=== PATIENT | female | born 1985 | race Caucasian/White ===

== ENCOUNTER → 2023-03-27 09:37 | Outpatient (BNVA) | payer OTHER, SELFPAY | PROVIDERS: Visit Provider Physician Assistant | DX: S63.652A Sprain of metacarpophalangeal joint of right middle finger, initial encounter (principal); X50.1XXA Overexertion from prolonged static or awkward postures, initial encounter | CPT/HCPCS: 99204 ==

== ENCOUNTER → 2023-04-02 11:41 | Outpatient (BNVA) | payer OTHER, SELFPAY | PROVIDERS: PCP Internal Medicine; Visit Provider Physician Assistant | DX: S63.652A Sprain of metacarpophalangeal joint of right middle finger, initial encounter (principal); X50.1XXA Overexertion from prolonged static or awkward postures, initial encounter | CPT/HCPCS: 99213 ==

== ENCOUNTER → 2023-04-17 11:48 | Outpatient (BNVA) | payer OTHER, SELFPAY | PROVIDERS: PCP Internal Medicine; Visit Provider Physician Assistant | DX: S63.652D Sprain of metacarpophalangeal joint of right middle finger, subsequent encounter (principal); X50.1XXD Overexertion from prolonged static or awkward postures, subsequent encounter | CPT/HCPCS: 99213 ==

== ENCOUNTER → 2023-05-03 14:08 | Outpatient (BNVA) | payer OTHER, SELFPAY | PROVIDERS: PCP Internal Medicine; Visit Provider Physician Assistant | DX: S63.652D Sprain of metacarpophalangeal joint of right middle finger, subsequent encounter (principal); X50.1XXD Overexertion from prolonged static or awkward postures, subsequent encounter | CPT/HCPCS: 99213 ==

== ENCOUNTER 2023-05-17 14:30 | Outpatient (RCR) | payer OTHER, BC, SELFPAY ==
--- NOTE | 2023-03-28 10:59 | MHC.OT.OEV ---
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 felt a pop on top of her right hand. 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 Now referred to OT for further assessment and management of right ring finger extensor strain. 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 [employer] Living Situation, Family and/or Social Support: Lives with 6 and 19 yo children Current Level of Function and Occupation Self Care, Employment, Leisure: Out of work, avoiding activities (cooking) that require use of right hand Sleep: No issues Driving: No issues, just gaurding Vision: Balance: Pain Assessment Pain Score: 4 Pain Scale Used: Numeric (0 - 10) Pain Location and Description: No pain at rest, feels tightness in dorsal forearm Aggravating Factors: General use/movement Alleviating Factors: Intermittent icing Skin and Soft Tissue Assessment Skin and Soft Tissue: Comments: Mild edema in right dorsal hand - intrametacarpal space Nerve assessment Ulnar Nerve: Median Nerve: Radial Nerve: Comments: WFL Sensory Assessment Temperature: Light Touch: Proprioception: Vibration: Comments: WFL Edema Assessment Upper Extremity: Lower Extremity: Comments: MCP circumference R 19.5 cm L 19.0 cm Dexterity Assessment Dexterity: Comments: Generally avoiding FMC tasks due to strain Special Tests Comments: AROM(PROM) Strength Cervical Cervical Flexion: Cervical Extension: Cervical Lateral Flexion: Cervical Rotation: Comments: Shoulder Flexion: Extension: Abduction: Internal Rotation: External Rotation: Comments: Flexion: Extension: Abduction: Internal Rotation: External Rotation: Comments: Elbow Flexion: Extension: Pronation: Supination: Comments: Flexion: Extension: Pronation: Supination: Comments: Wrist Flexion: R 74 L 80 Extension: R 68 L 70 Ulnar Deviation: Radial Deviation: Comments: Flexion: Extension: Ulnar Deviation: Radial Deviation: Comments: Thumb Thumb CMC Flexion: Thumb MCP Flexion: Thumb IP Flexion: Radial Abduction: Palmar Abduction: [place] ([place] 0-10): Comments: Digits Index MCP: PIP: DIP: Long MCP: PIP: DIP: Ring MCP: PIP: DIP: Small MCP: PIP: DIP: Comments: Grossly WFL, tested in protective position w/ MCP flex in lumbrical plus and IP flex in hook Gross Grasp: R NT L 55 Lateral Pinch: Two-Point Pinch: Three-Jaw Tomer: Comments: Patient Education Primary Language: Maltese 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 Patient demonstrates Patient verbalizes Barriers to Learning: None Readiness for Learning: Accepting Who was educated? 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 felt a pop on top of her right hand. 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 Now referred to OT for further assessment and management of right ring finger extensor strain. On assessment, pt w/ mid edema in dorsal hand between metacarpals, she is guarded w/ flex and has visible slipping of the extsnor tendon ulnarly over MCP head w/ composite flex, but otherwise good digit range w/ protective positioning. Injury consistent w/ extesnor strain/sagittal band injury. We have trialed movement w/ D3 in MCP relative extension position and she is able to flex hand without tendon slipping. She is good candidate for D3 relative motion ext block orthosis and has also been fit MCP flex block orthosis, instructed to wear whichever feels more comfortable at this time. I anticipate she will do well w/ brief course of OT for education but will primarily need time to allow injury to heal in protected position. STG Duration: 2 weeks Short Term Goals: Ind w/ orthosis wear Pt to report ease w/ light manual tasks without extensor tendon subluxation Ind w/ use of ice for edema and pain management as needed LTG Duration: Senior Living Goals: Frequency and Duration: The patient will be seen 1x/wk for 2 weeks Treatment Plan: Therapeutic Exercise Therapeutic Activity Home Exercise Program Splinting Patient Education Edema Control ADL Training Cold Packs Soft Tissue Mobilization Kinesiotaping Electronically Signed By: KG Hallman/Dinh FAUSTINT Reviewed/agree with student documentation: Therapist: Please sign and return to therapist, Thank you for your referral.
== END 2023-06-28 13:49 | disposition home or self-care (01) ==
LOC: HO.OT 14:30
PROVIDERS: PCP Internal Medicine; Visit Provider Physician Assistant
DX: S69.81XD Other specified injuries of right wrist, hand and finger(s), subsequent encounter (principal)
CPT/HCPCS: 29130; 97035; 97110; 97165; 97760

== ENCOUNTER 2023-06-02 11:59 | Emergency (ER) | payer SELFPAY ==
--- NOTE | ~2023-06-02 | XR_ITS ---
EXAMINATION: XR LUMBOSACRAL SPINE CLINICAL INFORMATION: Pain COMPARISON: None available. TECHNIQUE: Three views of the lumbosacral spine. FINDINGS: The vertebral bodies and posterior elements are normal. The disc spaces are preserved and the vertebral alignment is normal. The paraspinal soft tissues are normal. There are sclerotic changes around the SI joint possibly sacroiliitis. XR/XR lumbar spine 2-3V IMPRESSION: 1. No fracture or dislocation of the lumbar spine. 2. Intervertebral disc spaces are preserved. 3. Sclerotic changes around the SI joint possibly sacroiliitis.
[2023-06-02 12:09] VITALS: BP 197/106; PULSE 84; RESP 16; TEMP 36.3; O2SAT 100; BMI 29.9
--- NOTE | 2023-06-02 12:15 | ED.BACK ---
HPI - Back Pain/Injury General Chief Complaint: Back Pain/Injury Stated Complaint: back pain Time Seen by Provider: 06/02/23 12:31 Source: patient Mode of arrival: ambulatory Limitations: no limitations History of Present Illness HPI Narrative: 37-year-old female with a history of back pain presents the ER with complaints of lower back pain which began yesterday after bending over to put her pants on. Patient reports she felt a popping sensation in her lower back and since then she has had pain in her back with difficulty with ambulation. She denies any radiation of pain. No numbness or tingling in the leg or in the groin. No incontinence of urine or stool. No fevers or chills. Patient reports she has been taking ibuprofen 800 mg for pain with no relief. Related Data Previous Rx's Medication Instructions Recorded ibuprofen 800 mg tablet 800 mg PO TID pain swelling #60 03/27/23 tabs cyclobenzaprine 10 mg tablet 10 mg PO TID PRN muscle spasm #15 06/02/23 tabs lidocaine 5 % topical patch 1 patch topical DAILY #15 ea 06/02/23 (Lidoderm) prednisone 20 mg tablet 60 mg (3 x 20 mg) PO DAILY #15 tabs 06/02/23 Allergies Allergy/AdvReac Type Severity Reaction Status Date / Time No Known Allergies Allergy Verified 06/02/23 12:21 Review of Systems Review of Systems: Yes all other systems are reviewed and are negative Constitutional: Constitutional: Reports no additional constitutional complaints, Denies body ache(s), Denies chills, Denies fever(s), Denies headache(s) and Denies weakness Eyes: Eyes: Reports no additional eye complaints and Denies change in vision ENT: Reports system reviewed and no additional complaints, except as documented, Denies dizziness, Denies headache(s), Denies nasal congestion, Denies nasal discharge and Denies neck pain Cardiovascular: Cardiovascular: Reports no additional cardiovascular complaints, Denies chest pain, Denies leg edema and Denies dyspnea Respiratory: Respiratory: Reports no additional respiratory complaints, Denies cough and Denies dyspnea Gastrointestinal: Gastrointestinal: Reports no additional gastrointestinal complaints, Denies abdominal pain, Denies diarrhea, Denies nausea and Denies vomiting Genitourinary: Genitourinary: Reports no additional female genitourinary complaints and Denies urinary incontinence Musculoskeletal: Musculoskeletal: Reports no additional musculoskeletal complaints, Reports back pain, Denies arthralgias, Denies joint swelling, Denies neck pain, Denies numbness and Denies tingling Integumentary/Breasts: Skin/Breast: Reports system reviewed and no additional complaints, except as docu and Denies rash Neurologic: Reports system reviewed and no additional complaints, except as documented, Denies Abnormal speech present, Denies dizziness, Denies headache(s), Denies numbness, Denies tingling and Denies weakness [facility] Past Medical History Attestation statement: The following information was validated with the patient. Source: old records reviewed and nursing notes reviewed Social History Social History Alcohol intake: current Alcohol intake frequency: holidays/special occasions only Smoked in Last 30 Days: Yes Use of substances other than those prescribed or required for medical reasons: Yes Substance Use Type: Marijuana Substance Use Frequency: Occasionally Last Used Substance: Weeks (ago) Any prior treatment program specific to substance use: No Advance Directives: No Advance Directives Information Provided: No Physical Exam Vital Signs: Vital Signs: Last Vital Signs Temp 98.2 F 06/02/23 13:26 Pulse 65 06/02/23 13:26 Resp 16 06/02/23 13:26 BP 155/103 H 06/02/23 13:26 Pulse Ox 98 06/02/23 13:26 O2 Del Method Room Air 06/02/23 13:26 BMI result Body Mass Index 29.9 Const: General: cooperative, healthy appearing, comfortable and no acute distress Orientation/consciousness: patient oriented x3 Limitations: no limitations HEENT: Head: Yes normal to inspection Ears: hearing grossly normal bilaterally General nose exam: Normal external nose present Face and sinus: Yes normal facial exam Mouth: Normal oral and palatal mucosa present Throat: Yes posterior oropharynx normal Eyes: General: appearance normal, both eyes and all related structures Pupils: Equal, round and reactive pupils present Neck: Neck: Yes normal visual inspection Chest: Chest palpation & inspection: normal inspection of the chest Resp: Effort & Inspection: normal respiratory effort Auscultation: clear to auscultation bilaterally Cardio: Rate: regular rate Rhythm: regular rhythm Peripheral pulses: Peripheral pulses 2+ throughout GI: Inspection: Yes normal to inspection Palpation (GI): Soft to palpation and nontender Auscultation: normal bowel sounds Back/Spine/Pelvis: Other: there Is tenderness the lumbar soft tissue bilaterally of the mid spine with no step-offs deformities. Pain is worsened with flexion and extension of lumbar spine and bilateral straight leg raise. Thoracic/Lumbar Spine: thoracic and lumbar spine normal to inspection Skin: General skin exam: no rashes or lesions noted Neuro: General: patient oriented x3, moves all extremities, no focal motor deficits and normal sensation to monofilament Cranial nerves: Yes Equal, round and reactive pupils present Cognition (Neuro): normal cognition Speech: No Abnormal speech present Gait exam (Neuro): Normal gait present Motor exam (neuro): 5/5 motor strength present throughout Sensory Exam: Normal double simultaneous stimulation for sensation Deep tendon reflexes (DTR's): Right patellar reflex intensity grade: 2+ and Left patellar reflex intensity grade: 2+ Extrem: General: Yes normal to inspection Course Course Course Narrative: RME: 37 year-old F w/no sig PMHx presenting to the ED c/o low back pain x yesterday s/p putting pants on and feeling pop. Admits to pain with ambulating/movement. Admits to taking Ibuprofen 800mg @07:30AM & using heat without relief. denies direct injury/trauma or fall, incontinence/retention, weakness, numbness/tingling. Admits to similar sx in the past Ambulating w/guarded gait XRs ordered Full HPI, ROS and PE to be performed by primary ED provider. Reevaluation(s) Reevaluation #1: asymptomatic hypertension Medications Administered Discontinued Medications Generic Name Dose Route Start Last Admin Trade Name Freq PRN Reason Stop Dose Admin Ketorolac Tromethamine 30 mg 06/02/23 13:19 06/02/23 14:02 Ketorolac Tromethamine 30 Mg/Ml Vial IM 06/02/23 13:20 30 mg ONCE ONE Administration Medical Decision Making Medical Decision Making [facility] Narrative: 37-year-old female with a history of back pain presents the ER with complaints of lower back pain which began yesterday after bending over to put her pants on. Patient reports she felt a popping sensation in her lower back and since then she has had pain in her back with difficulty with ambulation. She denies any radiation of pain. No numbness or tingling in the leg or in the groin. No incontinence of urine or stool. No fevers or chills. Patient reports she has been taking ibuprofen 800 mg for pain with no relief. there Is tenderness the lumbar soft tissue bilaterally of the mid spine with no step-offs deformities. Pain is worsened with flexion and extension of lumbar spine and bilateral straight leg raise. On exam there are no neurological deficits or red flag symptoms in the HPI likely lumbar strain, herniated disc a consideration. Patient given Toradol IM in the ER with improvement of symptoms. Will send her home with Flexeril, Lidoderm patches and prednisone. She reports she has adequate ibuprofen at home. I did recommend she see her primary care doctor due to continued symptoms. She should return for any worrisome signs or symptoms which I discussed with her. Differential Diagnosis Differential Diagnoses: The differential diagnosis associated with the presentation includes Back pain, lumbar strain, herniated disc low concern for fracture with no reports of trauma Low concern for cord compression, cauda equina, malignancy, epidural abscess with normal neuro exam with no focal deficits or red flag symptoms Low concern for AA with gradual onset Low concern for renal colic or pyelonephritis with no urinary symptoms Admission/Observation Consideration of admission/observation: Escalation of care including admission/observation considered low concern for cord compression, cauda equina, malignancy, epidural abscess with normal neuro exam with no focal deficits or red flag symptoms suggest need for urgent MRI and or neurosurgery consultation Independent Interpretation I performed an independent interpretation of an: Plain X-Ray Interpretation: I independently reviewed the x-ray and agree with the rad report Radiology Impression Discussion of test interpretation with radiology: I have reviewed the radiologist's reading. Radiologist Impression: [place] [id number] XRay Report Signed Patient: Sabi Davenport MR#: [id number] : 1985 Acct:[id number] Age/Sex: 37 / F ADM Date: 06/02/23 Loc: HO.ED Attending Dr: Ordering Physician: Tanisha Torrez Date of Service: 06/02/23 Procedure(s): XR lumbar spine 2-3V Accession Number(s): [id number] cc: Physician,Unknown ; Tanisha Torrez~ EXAMINATION: XR LUMBOSACRAL SPINE CLINICAL INFORMATION: Pain COMPARISON: None available. TECHNIQUE: Three views of the lumbosacral spine. FINDINGS: The vertebral bodies and posterior elements are normal. The disc spaces are preserved and the vertebral alignment is normal. The paraspinal soft tissues are normal. There are sclerotic changes around the SI joint possibly sacroiliitis. XR/XR lumbar spine 2-3V IMPRESSION: 1. No fracture or dislocation of the lumbar spine. 2. Intervertebral disc spaces are preserved. 3. Sclerotic changes around the SI joint possibly sacroiliitis. Tests considered The following testing was considered but not selected: w concern for cord compression, cauda equina, malignancy, epidural abscess with normal neuro exam with no focal deficits or red flag symptoms to suggest need for urgent MRI Prescription Management I considered prescription management with: Pain Medication Discharge Plan Discharge Clinical Impression: Strain of lumbar region Patient Disposition: Home, Self-Care Instructions: Acute Low Back Pain (ED) Additional Instructions: heat to the area Gentle stretching No heavy lifting or bending Please follow-up with your primary care doctor as you may need to have an outpatient MRI of your back Please return for any incontinence of urine or stool, numbness in the groin, fever continue to take ibuprofen 800 mg 3 times a day your blood pressure was elevated today. This is likely from pain. recommend following up with primary care doctor for any continued Prescriptions: New cyclobenzaprine 10 mg tablet 10 mg PO TID PRN (Reason: muscle spasm) Qty: 15 0RF lidocaine [Lidoderm] 5 % adhesive patch,medicated 1 patch topical DAILY Qty: 15 0RF Rx Instructions: leave on most painful area for up to 12 hrs prednisone 20 mg tablet 60 mg PO DAILY Qty: 15 0RF No Action ibuprofen 800 mg tablet 800 mg PO TID Qty: 60 0RF Referrals: Physician,Unknown J [Primary Care Provider] - 1 week Interventions: ED Discharge Assessment Last Done: 06/02/23 14:08 Discharge Date/Time: 06/02/23 14:09
[2023-06-02 13:26] VITALS: BP 155/103; PULSE 65; RESP 16; TEMP 36.8; O2SAT 98
[2023-06-02] MEDS: Ketorolac Tromethamine 30 MG/ML VIAL IM (14:02)
== END 2023-06-02 14:09 | disposition home or self-care (01) ==
PROVIDERS: Emergency Provider Internal Medicine
DX: S39.012A Strain of muscle, fascia and tendon of lower back, initial encounter (principal); X50.9XXA Other and unspecified overexertion or strenuous movements or postures, initial encounter; Y93.89 Activity, other specified; Y92.019 Unspecified place in single-family (private) house as the place of occurrence of the external cause; Y99.9 Unspecified external cause status
CPT/HCPCS: 72100; 96372; 99284; J1885

== ENCOUNTER 2023-07-18 10:11 | Outpatient (REF) | payer OTHER, SELFPAY ==
--- NOTE | ~2023-07-18 | XR_ITS ---
EXAMINATION: XR HAND, RIGHT CLINICAL INFORMATION: Pain. COMPARISON: Radiographs dated 03/27/2023. TECHNIQUE: PA, lateral, and oblique views of the right hand. FINDINGS: The bones and soft tissues are normal. No fracture. Alignment is anatomic. Joint spaces are maintained. No erosions or soft tissue calcifications. XR/XR hand RT min 3V IMPRESSION: Normal right hand.
== END 2023-07-18 10:12 | disposition home or self-care (01) ==
LOC: HO.HOSX 10:11
PROVIDERS: Visit Provider Orthopaedic Surgery
DX: M79.641 Pain in right hand (principal)
CPT/HCPCS: 73130; 99202

== ENCOUNTER 2023-07-18 13:45 | Outpatient (AMB) | payer OTHER, SELFPAY ==
--- NOTE | 2023-07-18 14:08 | A.OFFVIS_ITS ---
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 Patient works at [employer] and while working she was taping a box and the tape got stuck to her glove and she moved her hand but her finger didnt move due to the tape being stuck to her right third finger. Seen with [facility] who referred patient to O.T. Patient reports no more pain just a little swelling. 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 This is a work-related injury that occurred on 03/26/23. She works at [employer] and says she accidentally taped her middle finger down on a box, and when trying to pull her hand free she strained her middle finger by forcibly pulling the finger ulnarly. She then found whenever she made a fist that her extensor tendon would subluxate ulnarly to the interspace between the 3rd and 4th metacarpal heads. This is most consistent with a radial sagittal band injury. She has been seen by [facility] and has completed a course of OT. She says she no longer has any pain, but has some swelling still in her finger. OT recognize this for a possible sagittal band injury and created a splint that would limit MCP flexion to only perhaps 20 degrees.. She wore this daily for ~2+ months since her injury, and now only wears it occasionally. She says she has not had subluxation of the tendon now in a few months. She says she has been working light duty since her injury. [facility] Social History (Updated 07/18/23 @ 14:13 by Silke Munguia CMA) Alcohol intake: current Alcohol intake frequency: holidays/special occasions only Patient Tobacco Use Status: Never used Tobacco Use of substances other than those prescribed or required for medical reasons: No Current occupational status: employed Current occupation: [employer]- right hand dominant Review of Systems Const All systems reviewed & are unremarkable except as noted in HPI and below Physical Exam Const General: cooperative, healthy appearing and no acute distress Orientation/consciousness: patient oriented x3 HEENT Head: Yes normocephalic and Yes atraumatic Eyes EOM: EOMs intact bilaterally Resp Effort & Inspection: normal respiratory effort and able to speak in complete sentences Cardio Jugular venous distension: no JVD Skin General skin exam: turgor normal Rashes: no rashes Neuro General: patient oriented x3 Extrem Other: Evaluation of Right Upper Extremity: The patient is alert, oriented, and in no acute distress Neuro: Median, Ulnar, Radial nerves motor and sensory intact and sensation is normal to the tips of all digits No intrinsic or thenar wasting. Vascular: Cap refill brisk ROM: She can make a fist and extend all her digits No subluxation of the EDC tendon to the middle finger when she makes a fist. I can see that it tended to lay on the ulnar aspect of the 3rd metacarpal head, but again I saw no subluxation off the side. She says this is a significant improvement compared to when this injury 1st occurred. Full active extension of the finger without difficulty. Perhaps some mild fullness still over the radial sagittal band area. Skin: No lacerations or abrasions. General: No Ecchymosis. No Erythema or evidence of infection. Radiographs: 3 views of the right hand were taken and viewed by me today in clinic. They show no fractures, dislocations, or arthritic changes. Psych Appearance: grossly normal Affect: normal affect Attitude: cooperative Assessment & Plan Assessment & Plan (1) Sagittal band rupture at metacarpophalangeal joint: Code(s): S63.659A - Sprain of metacarpophalangeal joint of unspecified finger, initial encounter Plan Assessment & Plan: 1. Right middle finger radial sagittal band injury With subluxation of the ECU tendon at the MCP joint at the time of injury From a work-injury, DOI: 03/26/23 Now with significant improvement following 2+ months of use of a custom thermoplastic splint limiting MCP joint flexion to only 20 degrees. I educated her about this condition She has no pain and good ROM, and has completed a course of OT with 2+ months of wearing a custom-made finger splint, which limited MCP joint ROM to 20 degrees, but allowed for full PIP joint ROM. I discussed activity modification, she is able to use her hands for all daily activity She will continue to wear her finger splint for 6 hours daily for the next 3-4 weeks. This can be done overnight No operative intervention indicated She was given a note for work saying she will continue her current light duty restrictions for the next 2 weeks. She will return to full duty on 07/30/23. She feels she is ready to return to full duty at this time, as she is unlikely re-injure herself in the course of her normal duties She can follow up prn. Scribed for Bee Ramirez MD by Bradley Jimenez, medical concierge, on 07/18/23 at 2:30 PM, EST. Orders: Orders XR hand RT min 3V Today M79.641 - Pain in right hand Coding Level of Care Code Est Pt Level 4 (82515) Diagnoses Sagittal band rupture at metacarpophalangeal joint S63.659A
== END 2023-07-18 14:34 | disposition home or self-care (01) ==
PROVIDERS: Visit Provider Orthopaedic Surgery
DX: S63.652A Sprain of metacarpophalangeal joint of right middle finger, initial encounter (principal)
CPT/HCPCS: 99203